=== PATIENT | male | born 1980 | race Caucasian/White ===

== ENCOUNTER 2016-09-05 14:25 | Outpatient (CLI) | payer SELFPAY ==
--- NOTE | 2016-09-05 17:40 | DIAGNOSTIC IMAGING REPORT ---
REFERRING PHYSICIAN/PROVIDER: CLEMENT Patel CONSULTING ORNAMENTAL BRICK INSTALLER: Jordon Arnold MD INDICATION: PALPITATIONS, SYSTOLIC MURMUR Procedure: A two-dimensional transthoracic echocardiogram with color flow and Doppler was performed. The study quality was technically adequate. The patient was in normal sinus rhythm during the exam. Left Ventricle: There is severe asymmetric left ventricular hypertrophy. The echo findings are consistent with hypertrophic cardiomyopathy. 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 The LVOT velocity is 1.6 m/s. The interventricular septum measures at 2.2 cm and the left ventricular posterior wall measures at 0.81 cm. Left ventricular systolic function is normal without focal wall motion abnormalities. The ejection fraction is estimated to be 70-75%. Assessment of diastolic parameters indicates a relaxation abnormality of the left ventricle, consistent with normal filling pressures. Right Ventricle: The right ventricle is normal in size and function. Atria: Both atria are normal in size. The interatrial septum is intact with no evidence for an atrial septal defect. Mitral Valve: There is systolic anterior motion of the mitral valve. The mitral valve is normal. There is trace mitral regurgitation. Aortic Valve: The aortic valve is trileaflet. The aortic valve opens well. There is no aortic regurgitation. Tricuspid Valve: The tricuspid valve is not well visualized, but is grossly normal. There is a trace or physiologic amount of tricuspid regurgitation. Pulmonic Valve: The pulmonic valve is not well seen, but is grossly normal. There is a trace or physiologic amount of pulmonic regurgitation. There is no other significant valvular heart disease. Great Vessels: The aortic root is normal size. The dimensions of the ascending aorta are normal. The aortic arch is normal in size. The IVC is of normal diameter and collapses greater than 50% with a sniff. This suggests a low right atrial pressure of 3 mm Hg. Pericardium/ Pleura There is no pericardial effusion. Interpretation Summary There is severe asymmetric left ventricular hypertrophy. The echo findings are consistent with hypertrophic cardiomyopathy. The interventricular septum measures at 2.2 cm and the left ventricular posterior wall measures at 0.81 cm. The LVOT velocity is 1.6 m/s. Left ventricular systolic function is normal without focal wall motion abnormalities. The ejection fraction is estimated to be 70-75%. Assessment of diastolic parameters indicates a relaxation abnormality of the left ventricle, consistent with normal filling pressures. The right ventricle is normal in size and function. Both atria are normal in size. The mitral valve is normal. There is systolic anterior motion of the mitral valve. There is trace mitral regurgitation. There is no other significant valvular heart disease. The aortic root is normal size.
== END 2016-09-05 23:00 ==
LOC: US SRH 14:25
DX: R00.2 Palpitations (principal)